=== PATIENT | male | born 1955 | race Caucasian/White ===

== ENCOUNTER 2020-02-06 11:55 | Emergency (ER) | payer MEDICAID ==
--- NOTE | 2020-02-06 12:28 | ED Physician Documentation ---
PD HPI HEADACHE - Stated complaint Stated Complaint: HEAD PX - Chief complaint Chief Complaint: Neuro - History obtained from History obtained from: Patient, Family (younger brother), Other (Translation service) - History of Present Illness Timing - onset: How many days ago (The patient states he has had several days of gradual onset and worsening of generalized headache. He denies any blurred vision, focal weakness, nausea, fevers or vomiting. He denies prior similar headaches. no noted injury.) Timing - onset during: Rest, Light activity Timing - duration: Days Timing - details: Gradual onset, Still present, Waxing and waning Worst headache ever?: No: Worst headache ever? Location: Global Quality: Throbbing. No: Thunderclap Associated symptoms: No: Fever, Stiff neck, Nausea, Weakness, Vision changes Improved by: No: Rest Worsened by: No: Light Contributing factors: No: Anticoagulated, Hypertension, Recent illness, Trauma Similar symptoms before: Has not had sx before Recently seen: Not recently seen (His brother states the patient had not been to a provider since last year.He does not take any daily medicines. He has been living with his brother for the last couple of weeks and apparently eating and drinking fairly regularly so does not seem like he should be dehydrated) Review of Systems Constitutional: denies: Fever, Myalgias Nose: denies: Rhinorrhea / runny nose, Congestion Throat: denies: Sore throat Respiratory: denies: Cough GI: denies: Abdominal Pain, Nausea, Vomiting, Diarrhea Musculoskeletal: denies: Neck pain, Back pain Neurologic: reports: Generalized weakness. denies: Focal weakness, Numbness Psychiatric: reports: Other (poor memory) Endocrine: reports: Weight loss Immunocompromised: denies: Chemotherapy PD PAST MEDICAL HISTORY - Past Medical History Cardiovascular: None Respiratory: None Neuro: Alzhiemer's Endocrine/Autoimmune: None - Present Medications Home Medications: Ambulatory Orders Medication Instructions Recorded Confirmed Cyanocobalamin (Vitamin B-12) 1,000 mcg PO DAILY #30 capsule 02/06/20 [Vitamin B-12] Hydrocodone/Acetaminophen [[place] 1 each PO Q6H PRN #20 tablet 02/06/20 5-325 Tablet] Naproxen 375 mg PO BID #25 tablet 02/06/20 - Allergies Allergies/Adverse Reactions: Allergies Allergy/AdvReac Type Severity Reaction Status Date / Time No Known Drug Allergies Allergy Verified 02/06/20 12:03 - Living Situation Living Situation: reports: With family Living Arrangement: reports: At home - Social History Does the pt smoke?: No Does the pt drink ETOH?: No PD ED PE NORMAL - Vitals Vital signs reviewed: Yes - General General: Alert and oriented X 3, No acute distress, Well developed/nourished - HEENT HEENT: Atraumatic, Pharynx benign - Neck Neck: Supple, no meningeal sign, No adenopathy - Cardiac Cardiac: RRR, No murmur - Respiratory Respiratory: Clear bilaterally - Abdomen Abdomen: Soft, Non tender, Non distended - Back Back: No CVA TTP - Derm Derm: Normal color, Warm and dry - Extremities Extremities: Normal ROM s pain, No edema, No calf tenderness / cord - Neuro Neuro: Alert and oriented X 3, veterinary virologist 2-12 intact, No motor deficit, No sensory deficit, Normal speech, Other Eye Opening: Spontaneous Motor: Obeys Commands Verbal: Oriented GCS Score: 15 Results - Vitals Vitals: Vital Signs - 24 hr 02/06/20 02/06/20 02/06/20 11:57 12:33 12:35 Temperature 36.8 C Heart Rate 65 74 72 Respiratory 18 15 22 Rate Blood Pressure 130/72 118/69 131/68 H O2 Saturation 99 95 100 02/06/20 02/06/20 02/06/20 13:05 13:59 14:00 Temperature Heart Rate 63 64 63 Respiratory 15 16 20 Rate Blood Pressure 112/97 H 116/95 H 112/77 O2 Saturation 100 98 100 02/06/20 02/06/20 14:30 14:46 Temperature 36.7 C Heart Rate 65 80 Respiratory 21 12 Rate Blood Pressure 113/80 130/68 O2 Saturation 100 100 Oxygen O2 Source Room air - Labs Labs: Laboratory Tests 02/06/20 02/06/20 02/06/20 12:12 12:12 12:12 WBC 6.0 RBC 4.23 L Hgb 15.4 Hct 43.3 MCV 102.4 H MCH 36.4 H MCHC 35.6 RDW 13.9 Plt Count 242 MPV 10.5 Neut # (Auto) 3.7 Lymph # (Auto) 1.7 [place] # (Auto) 0.5 Eos # (Auto) 0.0 Baso # (Auto) 0.0 Absolute Nucleated RBC 0.00 Nucleated RBC % 0.0 ESR 2 Sodium 138 Potassium 3.7 Chloride 98 L Carbon Dioxide 30 Anion Gap 10.0 BUN 17 Creatinine 0.9 Estimated GFR (MDRD) 85 L Glucose 99 Calcium 9.0 Magnesium 2.4 Total Bilirubin 1.5 H AST 27 ALT 25 Alkaline Phosphatase 48 Total Protein 7.7 Albumin 4.3 Globulin 3.4 Albumin/Globulin Ratio 1.3 Lipase 27 Vitamin B12 Urine Color Urine Clarity Urine pH Ur Specific [place] Urine Protein Urine Glucose (UA) Urine Ketones Urine Occult Blood Urine Nitrite Urine Bilirubin Urine Urobilinogen Ur Leukocyte Esterase Ur Microscopic Review Urine Culture Comments 02/06/20 02/06/20 12:12 12:57 WBC RBC Hgb Hct MCV MCH MCHC RDW Plt Count MPV Neut # (Auto) Lymph # (Auto) [place] # (Auto) Eos # (Auto) Baso # (Auto) Absolute Nucleated RBC Nucleated RBC % ESR Sodium Potassium Chloride Carbon Dioxide Anion Gap BUN Creatinine Estimated GFR (MDRD) Glucose Calcium Magnesium Total Bilirubin AST ALT Alkaline Phosphatase Total Protein Albumin Globulin Albumin/Globulin Ratio Lipase Vitamin B12 < 50 L Urine Color YELLOW Urine Clarity CLEAR Urine pH 7.5 Ur Specific [place] 1.020 Urine Protein NEGATIVE Urine Glucose (UA) NEGATIVE Urine Ketones NEGATIVE Urine Occult Blood NEGATIVE Urine Nitrite NEGATIVE Urine Bilirubin NEGATIVE Urine Urobilinogen 2 H Ur Leukocyte Esterase NEGATIVE Ur Microscopic Review NOT INDICATED Urine Culture Comments NOT INDICATED - Rads (name of study) head CT Radiology: Prelim report reviewed, See rad report chest xray Radiology: Prelim report reviewed (no acute process), See rad report PD MEDICAL DECISION MAKING - ED course Complexity details: re-evaluated patient (no serious cause identified for headache nor weakness. ), considered differential (We will check general labs for headache and also the report of recent diagnosis of Alzheimer's/dementia. We will get a CT of the head to look for any bleeding or masses. There is no focal deficits so does not sound strokelike. Can get him some medicine for the headache), d/w patient, d/w family Departure - Departure Disposition: 01 Home, Self Care Clinical Impression: Headache, acute Qualifiers: Headache type: unspecified Intractability: not intractable Qualified Code(s): R51 - Headache Condition: Stable Record reviewed to determine appropriate education?: Yes Instructions: ED Cephalgia Unspecified Prescriptions: Naproxen 375 mg PO BID #25 tablet Hydrocodone/Acetaminophen [[place] 5-325 Tablet] 1 each PO Q6H PRN #20 tablet PRN Reason: Pain Cyanocobalamin (Vitamin B-12) [Vitamin B-12] 1,000 mcg PO DAILY #30 capsule Comments: Your basic blood tests and chest x-ray and head CT scan appear normal. You do have a low vitamin B12 level which can be associated with some cognitive problems. We will add a supplement for that. Regarding the headache, this may be muscle tension or sinus headache or such. For it you can try naproxen anti-inflammatory twice daily for the next 7 to 10 days. Take it with food. To that add Tylenol 4 times a day for headache or hydrocodone tablet if needed for worse headache. Follow-up with your new primary care provider in February as planned. Return if worsening. Discharge Date/Time: 02/06/20 14:46
[2020-02-06] MEDS ORDERED: ACETAMINOPHEN 325 MG TABLET PO STA (12:47)
[2020-02-06] MEDS ORDERED: SODIUM CHLORIDE 0.9% 1,000 ML IV STA (12:47)
[2020-02-06] MEDS ORDERED: KETOROLAC 30 MG/ML VIAL IVP STA (12:47)
[2020-02-06 12:55] LABS: BASOPHILS % (AUTO) 0.5 %; EOSINOPHILS % (AUTO) 0.7 %; HGB - HEMOGLOBIN 15.4 g/dL (14.0-18.0); LYMPHOCYTES # (AUTO) 1.7 10^3/uL (1.5-3.5); LYMPHOCYTES % (AUTO) 28.3 %; MEAN CORPUSCULAR HEMOGLOBIN 36.4 pg (27.0-31.0); MEAN CORPUSCULAR HGB CONC 35.6 g/dL (32.0-36.0); MEAN CORPUSCULAR VOLUME 102.4 fL (80.0-94.0); MEAN PLATELET VOLUME 10.5 fL (7.4-11.4); MONOCYTES # (AUTO) 0.5 10^3/uL (0.0-1.0); MONOCYTES % (AUTO) 7.5 %; NEUTROPHILS # (AUTO) 3.7 10^3/uL (1.5-6.6); NEUTROPHILS % (AUTO) 62.5 %; PLT - PLATELET COUNT 242 10^3/uL (130-450); RED BLOOD COUNT 4.23 10^6/uL (4.70-6.10); RED CELL DISTRIBUTION WIDTH 13.9 % (12.0-15.0)
[2020-02-06 13:05] LABS: ALBUMIN 4.3 g/dL (3.2-5.5); ALBUMIN/GLOBULIN RATIO 1.3 (1.0-2.2); BILIRUBIN,TOTAL 1.5 mg/dL (0.2-1.0); CREATININE 0.9 mg/dL (0.6-1.2); MAGNESIUM 2.4 mg/dL (1.7-2.8); TOTAL PROTEIN 7.7 g/dL (6.7-8.2)
[2020-02-06 13:16] LABS: BILIRUBIN,URINE NEGATIVE (NEGATIVE); GLUCOSE, URINE (UA) NEGATIVE (NEGATIVE); KETONES,URINE (UA) NEGATIVE (NEGATIVE); LEUKOCYTE ESTERASE, URINE NEGATIVE (NEGATIVE); NITRITE,URINE NEGATIVE (NEGATIVE); OCCULT BLOOD,URINE NEGATIVE (NEGATIVE); PH,URINE 7.5 PH (5.0-7.5); PROTEIN,URINE NEGATIVE (NEGATIVE); UROBILINOGEN,URINE 2 E.U./dL (NORMAL)
[2020-02-06 13:18] LABS: CLARITY,URINE CLEAR (CLEAR)
--- NOTE | 2020-02-06 13:37 | XRAY Report ---
PROCEDURE: Chest 1 View X-Ray INDICATIONS: chest pain TECHNIQUE: One view of the chest was acquired. COMPARISON: None. FINDINGS: Surgical changes and devices: None. Lungs and pleura: No pleural effusions or pneumothorax. Lungs are clear. Mediastinum: Mediastinal contours appear normal. Heart size is normal. Bones and chest wall: No suspicious bony lesions. Overlying soft tissues appear unremarkable. IMPRESSION: No acute cardiopulmonary disease. Reviewed by: Keri Delaney MD on 02/06/2020 1:35 PM PDT Approved by: Keri Delaney MD on 02/06/2020 1:35 PM PDT Station ID: [id number]
--- NOTE | 2020-02-06 13:52 | CT Report ---
PROCEDURE: HEAD WO INDICATIONS: headache acute TECHNIQUE: Noncontrast 4.5 mm thick angled axial sections acquired from the foramen magnum to the vertex. For r adiation dose reduction, the following was used: automated exposure control, adjustment of mA and/or kV according to patient size. COMPARISON: None. FINDINGS: Image quality: Excellent. CSF spaces: Basal cisterns are patent. No extra-axial fluid collections. Ventricles are normal in size and shape. Brain: No midline shift. No intracranial masses or hemorrhage. [place]-white matter interface is norm al. Skull and face: Calvarium and visualized facial bones are intact, without suspicious lesions. Sinuses: Visualized sinuses and mastoids are clear. IMPRESSION: No acute intracranial disease process. Reviewed by: Angeles Zhang MD, PhD on 02/06/2020 1:51 PM PDT Approved by: Angeles Zhang MD, PhD on 02/06/2020 1:51 PM PDT Station ID: [id number]
[2020-02-06] MEDS ORDERED: MORPHINE 2 MG/ML CARPUJECT IVP STA (14:18)
[2020-02-06 14:50] VITALS: BP 130/68
== END 2020-02-06 14:46 | disposition home or self-care (01) ==
LOC: ED 11:55
DX: R51 Headache (principal)
CPT/HCPCS: 36415; 70450; 71045; 80053; 81003; 82607; 83690; 83735; 85025; 85651; 86780; 96361; 96374; 96375; 99284; A9270; 81001; 87086